=== PATIENT | female | born 1985 | race Caucasian/White ===

== ENCOUNTER 2023-03-20 07:51 | Day surgery (SDC) | payer OTHER ==
[~2023-03-20 07:51] MED LIST: LABETALOL HCL200 MG PO
== END 2023-03-20 20:10 | disposition home or self-care (01) ==
LOC: CIR.AMB 07:51
PROVIDERS: ATTEND Obstetrics & Gynecology
DX: O02.1 Missed abortion (principal); O72.2 Delayed and secondary postpartum hemorrhage; Z20.822 Contact with and (suspected) exposure to COVID-19